=== PATIENT | male | born 1960 | race Two or more races ===

== ENCOUNTER 2022-01-18 21:04 | Emergency (ER) | payer MEDICAID, OTHER ==
[~2022-01-18] VITALS: Ht 170.2 cm; Wt 72.6 kg
--- NOTE | 2022-01-18 21:38 | NUR ---
PT JOHNNIE FROM THE STREETS C/O ETOH AND S/I WITH PLAN TO CUT HIMSELF. PT STATES HIS LAST DRINK WAS AROUND 1800. PT AAOX3 BREATHING EVENLY AND UNLABORED. PT ATTACHED TO MONITOR AND POX. PT CHANGED INTO GOWN WITH BELONGINGS REMOVED AND PLACED IN LOCKER.
[2022-01-18 22:07] LABS: BASOPHILS # (AUTO) 0.1 K/uL (0.0-0.2); BASOPHILS % (AUTO) 1.9 % (0.0-2.0); EOSINOPHILS % (AUTO) 0.9 % (0.0-6.0); HEMATOCRIT 43 % (39-51); HEMOGLOBIN 14.8 g/dL (13.5-17.5); LYMPHOCYTES # (AUTO) 2.4 K/uL (0.8-4.8); MEAN CORPUSCULAR HGB CONC 34 g/dl (31.0-36.0); MEAN CORPUSCULAR VOLUME 99 fL (80-96); MONOCYTES # (AUTO) 0.6 K/uL (0.1-1.30); NEUTROPHILS # (AUTO) 1.8 K/uL (1.8-8.9); NEUTROPHILS % (AUTO) 36.2 % (43.0-81.0); PLATELET COUNT (AUTO) 102 K/uL (150-450); RED BLOOD CELL COUNT(AUTO) 4.35 MIL/uL (4.5-6.0)
[2022-01-18 22:17] LABS: CALCIUM, SERUM 8.2 mg/dL (8.5-10.1); CREATININE 0.9 mg/dL (0.6-1.3)
[2022-01-18 22:24] LABS: ALBUMIN 3.5 g/dL (3.4-5.0); BILIRUBIN,DIRECT 0.4 mg/dL (0.0-0.2); BILIRUBIN,TOTAL 0.9 mg/dL (0.2-1.0); POTASSIUM 2.8 mmol/L (3.5-5.1); TOTAL PROTEIN, SERUM 9.6 g/dL (6.4-8.2)
--- NOTE | 2022-01-18 22:25 | NUR ---
POTASSIUM 2.8
[2022-01-18] MEDS ORDERED: POTASSIUM CHLORIDE 10 MEQ/50 ML PREMIXED IVPB FOR PERIPHERAL LINE IV ONE (22:30)
[2022-01-18] MEDS ORDERED: IV NS 0.9% 1,000 ML BAG IV ONE (22:30)
[2022-01-18] MEDS ORDERED: POTASSIUM CL. PREMIX PERIPHER. 50 ML ONE (22:44)
--- NOTE | 2022-01-18 22:50 | NUR ---
STK POTASSIUM CHLORIDE PULLED FROM FLOOR. NOT AVAILABLE IN ER
[2022-01-18] MEDS ORDERED: MAGNESIUM OXIDE 400 MG TABLET ONE (23:20)
[2022-01-18] MEDS ORDERED: POTASSIUM CHLORIDE 20 MEQ TAB.PRT.SR PO ONE ×2 (23:20→23:30)
--- NOTE | 2022-01-18 23:20 | NUR ---
PT GIVEN FOOD, NEEDS MET
[2022-01-18] MEDS ORDERED: MAGNESIUM OXIDE 400 MG TABLET PO ONE (23:30)
[2022-01-19 00:35] LABS: ACETAMINOPHEN < 2 ug/ml (10-30)
--- NOTE | 2022-01-19 00:35 | NUR ---
COVID SWAB COLLECTED, SENT TO LAB.
--- NOTE | 2022-01-19 00:35 | NUR ---
PT STILL UNABLE TO URINATE
[2022-01-19 04:00] LABS: CALCIUM, SERUM 7.8 mg/dL (8.5-10.1); CREATININE 0.7 mg/dL (0.6-1.3); POTASSIUM 4.3 mmol/L (3.5-5.1)
--- NOTE | 2022-01-19 06:39 | NUR ---
URINE SAMPLE OBTAINED. CALLED [facility] FOR ELEVATOR WORKER. PATIENT NOTED WITH PULLED OUT IV LINE.
[2022-01-19 07:17] LABS: BILIRUBIN,URINE NEGATIVE (NEGATIVE); COLOR,URINE YELLOW (YELLOW); LEUKOCYTE ESTERASE ,URINE NEGATIVE (NEGATIVE); NITRITE, URINE NEGATIVE (NEGATIVE); PROTEIN,URINE NEGATIVE (NEGATIVE); UGLUCOSE NEGATIVE (NEGATIVE); UROBILINOGEN,URINE >=8.0 EU/dL (0.2)
[2022-01-19 07:25] LABS: BACTERIA,URINE Rare /HPF (None Seen); SQUAMOUS EPITHELIAL CELL,UR Rare /HPF (None Seen); WBC,URINE 0-2 /HPF (0-3)
--- NOTE | 2022-01-19 10:35 | NUR ---
FAXED PT CLINICALS TO [facility]
--- NOTE | 2022-01-19 10:45 | NUR ---
SS Consult: SS Consult requested for SI, homelessness, and drug and alcohol use. The pt. is a 61-year-old male patient who came in for SI with no plan. Upon SS consult, the pt. is Alert & Oriented x 4 and makes poor eye contact keeping his eyes closed throughout interview. The pt. appears unkempt with dysphoric mood & affect. Pt. stated he has intermittent thoughts of suicide and denies a plan at this time. Pt. denies current HI and hallucinations. Pt. states he has current auditory hallucinations. Per pt. 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 SW explored pt.'s living situation. Patient states he is currently experiencing homelessness. SW explored pt.'s drug & ETOH use. Pt. states he uses alcohol daily and use Meth at times. Per pt. he is ambulatory and independent with all his ADL's. SW explored pt.'s support system. Pt. states he has no support system. Plan: SW was referred pt. to [facility] for inpatient psychiatric treatment. SW provided pt. with homeless and mental health resources, and he accepted them. Pt. refused to sign homeless waiver and it was places it in the pt.'s chart. Year-round shelters: [facility] [address] [address] ; [facility] [address] [place] [address]; [facility] X[address]za[address] [facility]. [facility] [address] Hygiene: [facility]: [address] [place] ; [facility] [address] [facility] ; [facility] [address]091 Melva Grewal . Food Resources: [facility] at [facility]- [address]. [place]; Meet Each Need with Dignity (MEND) [address] [place]; [facility] [address] [facility]; [facility] 7116 [facility]. Mental Health resources provided: [facility] [address] [place] [address] ; [facility] [address] [place] [address] [facility] [address], [place] [address] ; [facility] [address] Amalia Banuelos [place], [place] [id number] ; [facility] [address] [place], [place] [id number] Healthcare Clinics: [facility] [address] [facility], [address] [place]. [place] ; [facility] [address] [facility] [address] [place] [address]; [facility] [address] [place] [address] [phone]) [phone] Counseling--Outpatient [facility] [address] [facility], [place] [address] (Specializes in in-depth psychotherapy for emotional distress: anxiety, depression, interpersonal conflicts, life transitions, childhood abuse) Pending Sale To [facility] [address] [place] [address] (Assist with solving problem marital difficulties, separation & divorce, aging parents, & grief, chronic & terminal illness) [facility] [address] [place] [address] (Deal with loss & grief, anxiety, marital difficulties) Homebound/Mental Health Services [address], [address] [place], [place] [address] (Provide in-home mental services to people who are incapable of leaving their homes) [facility] Elder[facility] [address] [place] [address] [facility] [address] [facility] Center[facility]ila henry. [place], [place] [phone] PSYCHIATRIC OUTPATIENT SERVICES [facility] Partial Hospitalization and Intensive Outpatient Program (Managed Care and [place] Only)[address] [address]. [facility] [phone] [facility] Partial Hospitalization and Outpatient Zn[address]eq[address] [place], [place] [phone] [facility] [place] [address] [place], [place] [phone] [facility] Partial Hospitalization and Outpatient Ygoghey[address] Em[facility] Melva Colvin, [phone] Substance Abuse resources provided included: [facility] Substance Abuse Self-Helpline ([facility]) ; [facility] [address] [facility]. [place] [address] ; [facility] [address] [facility] [address] ; [facility] [address] Bl[address] [address] ; [facility] [address] [address] ; [facility] 4940 [facility] [address] ; [facility] [address] [facility] [address] ; [facility] Substance Abuse Helpline([facility] ; [facility] ; [facility] [place]; [facility]; [facility] [place]; [facility] Melva david; [facility]; [facility] [place]; [facility] [place] [facility] [place]; Alcoholics Anonymous -[facility]; Lemuel ; Marijuana Anonymous [facility]; Narcotics Anonymous www.na.org;
[2022-01-19 14:32] VITALS: BP 133/80
--- NOTE | 2022-01-19 15:35 | NUR ---
SO GREGORY MILLER CALLED WITH ACCEPTANCE INFO UNDER THE CARE OF DR. ELLSWORTH UNIT 2 NUMBER FOR REPORT [phone] WILL RECIEVE A CALL BACK WITH ETA FOR TRANSPORT
--- NOTE | 2022-01-19 16:00 | NUR ---
REPORT GIVEN TO YANELY FOR LAUREN
--- NOTE | 2022-01-19 19:45 | NUR ---
[facility] ETA: 60-75 MIN
--- NOTE | 2022-01-19 20:43 | NUR ---
PATIENT WAS TRANSFERRED TO [facility] IN STABLE CONDITION
== END 2022-01-19 16:05 ==
LOC: ER 21:06
DX: R45.851 Suicidal ideations (principal); F10.229 Alcohol dependence with intoxication, unspecified; Y90.8 Blood alcohol level of 240 mg/100 ml or more; Z59.00 Homelessness unspecified; E87.6 Hypokalemia; D50.9 Iron deficiency anemia, unspecified; E83.51 Hypocalcemia; D70.9 Neutropenia, unspecified; R03.0 Elevated blood-pressure reading, without diagnosis of hypertension; Z20.822 Contact with and (suspected) exposure to COVID-19
CPT/HCPCS: 99285; 96365; 85025; 80048 ×2; 80076; 36415 ×2; 80320 ×2; 80307; 81001; 87426; 80143; J7030; J3480; C9803; G0480

== ENCOUNTER 2022-01-19 22:07 | Emergency (ER) | payer MEDICAID ==
[~2022-01-19] VITALS: Ht 172.7 cm; Wt 77.1 kg
[2022-01-19] MEDS ORDERED: CHLORDIAZEPOXIDE HCL 25 MG CAPSULE ONE (22:40)
[2022-01-19] MEDS: CHLORDIAZEPOXIDE HCL 25 MG CAPSULE PO ONE (22:42)
--- NOTE | 2022-01-19 22:50 | NUR ---
PATIENT BIBPA C/O + SI, WANT VOL PSYCH ADMIT. PATIENT IS A/O X 4, RR EVEN AND UNLABORED, NO SOB NOTED, VSS. PATIENT TAKEN TO ER BED 18 WITH RN, EMT AND SECURITY AT BEDSIDE FOR PATIENT WANDING. PATIENT BELONGINGS TAKEN AND PLACED IN LOCKER, PATIENT PLACED IN HOSPITAL GOWN. WILL CONTINUE TO MONITOR.
--- NOTE | 2022-01-19 23:00 | NUR ---
pt ambulatory with a steady gait, no assist.
--- NOTE | 2022-01-19 23:11 | NUR ---
Khushi zuleta in [place] - 01/20/22 at 0323 by JESSE COVID SWAB DONE AND SENT TO LAB
--- NOTE | 2022-01-20 04:09 | NUR ---
SPOKE TO ALESSANDRO, NEURODIAGNOSTIC TECH AT [facility]. PER HIM PATOENT NEEDS MEDICAL ATTENDANCE DUE TO POSSIBLE ALCOHOL WITHDRAWAL AND TREMOR. PER OCTOBER AT [facility] INTAKE PAT[facility]. AWATING FOR FEEDBACK.
--- NOTE | 2022-01-20 08:27 | NUR ---
COVID ANTIGEN SWAB DONE AND SENT TO THE LAB
--- NOTE | 2022-01-20 12:25 | NUR ---
SS Consult requested for medical screening. Pt. is a 61-year-old male who was admitted to [facility] on 01/19/2022 due to suicidal ideation. Upon SS consult, pt. is alert and oriented x4. Pt. presents with an anxious mood. Pt. appears unkempt and does not provide appropriate eye contact. environmental restoration planner explored pt.s social support. Pt. stated he didnt have any social support. environmental restoration planner explored pt.s current living situation. Pt. stated he was homeless. environmental restoration planner referred the pt. to [address] [address]). Homeless waiver was signed and given to the patient and a copy was placed in the chart. Pt. will be alert and oriented x4 upon discharge. Pt. stated he wanted to be referred to [facility]. environmental restoration planner stated that clinicals have been faxed to [facility] in [place]. Pt. stated he did not want to go to [place] and wanted to stay in the [facility]. environmental restoration planner faxed clinicals to [facility] (FAX: [phone]). environmental restoration planner explored pt.s substance use history. Pt. stated he uses alcohol and methamphetamine. environmental restoration planner offered the pt. resources to [facility] ([address] [place] [address]). environmental restoration planner explored pt.s psychiatric history. Pt. is a poor historian and could not recall other psychiatric diagnosis. Pt. stated he has auditory hallucinations. Pt. stated he is not currently having auditory hallucinations. Pt. denied visual hallucinations. Pt. denied suicidal and homicidal ideation. Plan: Pt. will be discharged to [facility] [[address] [place] [address]] or [facility] [[address] [facility] [address]]\
--- NOTE | 2022-01-20 15:42 | NUR ---
PT ACCEPTED TO [facility] UNDER DR. ELLSWORTH CALL [phone] X [phone] FOR REPORT.
--- NOTE | 2022-01-20 16:22 | NUR ---
[facility] TRANSPORT WITH ETA 60 MINS PER CRISTIANO.
--- NOTE | 2022-01-20 16:31 | NUR ---
REPORT GIVEN TO MERISSA. AWAITNG TRANSFER TO FLOOR.
[2022-01-20] MEDS ORDERED: LORAZEPAM INJ 2 MG/ML VIAL ONE (18:03)
[2022-01-20] MEDS: LORAZEPAM INJ 2 MG/ML VIAL IM ONE (18:10)
[2022-01-21 07:30] VITALS: BP 139/64
--- NOTE | 2022-01-21 08:38 | NUR ---
ALEXI called [facility] TEL:[phone] fax:[phone] regarding admission. Per Intake the will work on [employer] again. Per CRN, the pt. had elevated heart rate yesterday when he was about to be transferred to [facility].
--- NOTE | 2022-01-21 09:45 | NUR ---
SS NOTE: ALEXI faxed latest pulse rate to [facility] TEL:[phone] fax:[phone].
--- NOTE | 2022-01-21 10:55 | NUR ---
ACCEPTED AT [address] FOR TRANSPORT UNDER THE CARE OF [phone] FOR REPORT.
--- NOTE | 2022-01-21 11:15 | NUR ---
PICKED UP BY [facility] IN STABLE CONDITION
== END 2022-01-21 11:37 ==
LOC: ER 22:09
DX: R45.851 Suicidal ideations (principal); Z59.00 Homelessness unspecified; F10.239 Alcohol dependence with withdrawal, unspecified; R00.0 Tachycardia, unspecified; Z20.822 Contact with and (suspected) exposure to COVID-19
CPT/HCPCS: 99285; 96372; J2060